=== PATIENT | female | born 1995 | race Caucasian/White ===

== ENCOUNTER 2024-02-21 10:06 | Emergency (ER) | payer OTHER, SELFPAY ==
[2024-02-21 10:57] LABS: % Basophils 0.3 % (0-2); % Eosinophils 0.1 % (0-6); % Immature Granulocytes 0.3 % (0-0.5); % Monocytes 8.3 % (1.7-9.3); Absolute Lymphocytes 1.1 10^3/uL (1.2-3.4); Absolute Monocytes 1.1 10^3/uL (0.1-0.6); Absolute Neutrophils 11.3 10^3/uL (1.4-6.5); Hematocrit 41.3 % (37.0-47.0); Hemoglobin 14.4 g/dL (12.0-16.0); Mean Corp Hgb Conc. 34.9 g/dL (33.0-37.0); Nucleated Red Blood Cells % 0 %; Platelet Count 239 10^3/uL (130-400); Red Blood Cell Count 4.64 10^6/uL (4.20-5.40); Red Cell Dist. Width 11.9 % (11.5-14.5); White Blood Cell Count 13.6 10^3/uL (4.8-10.8)
[2024-02-21 11:06] LABS: HCG, Serum Qualitative Screen Negative
[2024-02-21 11:09] LABS: ALT (SGPT) 13 U/L (0-35); AST (SGOT) 18 U/L (14-36); Albumin 4.4 g/dl (3.5-5.0); Alkaline Phosphatase 59 U/L (38-126); Blood Urea Nitrogen 11 mg/dl (7-17); Calcium 9.4 mg/dl (8.4-10.2); Carbon Dioxide 25 mmol/L (22-30); Chloride 99 mmol/L (98-107); Glucose 140 mg/dl (70-99); Sodium 137 mmol/L (135-145); Total Bilirubin 0.8 mg/dl (0.2-1.3); Total Protein 6.9 g/dl (6.3-8.2); eGFR > 60.00
[2024-02-21 11:14] LABS: Urine Albumin Trace (Neg - Trace); Urine Bilirubin Negative (Negative); Urine Character Clear (Clear); Urine Color Yellow; Urine Glucose Negative (Negative); Urine Ketone 1+ (Negative); Urine Leukocyte Trace (Negative); Urine Nitrite Negative (Negative); Urine Occult Blood 1+ (Negative); Urine Urobilinogen Negative (Neg - 1+)
--- NOTE | 2024-02-21 11:18 | ED.GENMED ---
History of Present Illness
<Korina Humphrey PA-C - Last Filed: 02/21/24 13:50>
General
Chief Complaint: Flank Pain
Source: patient
Exam Limitations: none
Time Seen by Provider: 02/21/24 11:13
Nursing documentation reviewed up to this point in time: agreed with
History of Present Illness
History of Present Illness:
28-year-old female with no past medical history presents emergency department today with concerns of left flank pain, burning with urination, and generalized pelvic pain. Patient states that this all started 2 weeks ago when she started develop
generalized UTI symptoms. She developed urinary burning and urinary frequency. As time went on, she started develop left flank pain which started around 7 days ago and has been progressively getting worse. Patient states that she went to urgent
care yesterday and was started on Macrobid, she had 1 dose of this. Patient states that overnight, she her flank pain got a lot worse and she started develop fevers and chills which resolved with ibuprofen. Patient has been managing her fever with
this. Her last dose was 2 1/2 hours ago.
Past History
<Korina Humphrey PA-C - Last Filed: 02/21/24 13:50>
Social History
Tobacco: Non-smoker
Alcohol: None
Drug: None
Review of Systems
<Korina Humphrey PA-C - Last Filed: 02/21/24 13:50>
Review of Systems
All Other Systems: ROS reviewed and negative except as documented in HPI and ROS
Phy Exam
<Korina Humphrey PA-C - Last Filed: 02/21/24 13:50>
Physical Exam
Physical Exam:
General: Patient is well appearing and in no acute distress; non-toxic
Skin: Warm and dry, no rashes or lesions
Head: Normocephalic, atraumatic
Eyes: Sclera non-icteric. EOMs intact. PERRLA.
Cardiac: Regular rate and rhythm, no murmurs
Peripheral Vascular: No lower extremity swelling or edema
Pulm: Normal respiratory effort
Abdomen: Mild pelvic tenderness to palpation, mild left CVA tenderness
Neuro: CN II-XII intact, no focal neurologic deficits.
Psychiatric: Appropriate mood and affect.
Course
<Korina Humphrey PA-C - Last Filed: 02/21/24 13:50>
Orders/Labs/Results
Orders:
Orders
02/21/24 10:16
Test Result ONCE
02/21/24 10:49
Complete Blood Count/With Diff Urgent
Comprehensive Metabolic Panel Urgent
HCG, Serum Qualitative Screen Urgent
Urinalysis Reflex To Culture Urgent
Date Specimen was Collected: 02/21/24
Time Specimen was Collected: 10:16
Urine Microscopic Reflex Cult Urgent
02/21/24 11:49
0.9% Sodium Chloride 1000 ml [Nss] 1,000 ml IV BOLUS
Ondansetron Injectable [Zofran] 4 mg IV NOW STA
02/21/24 11:53
Vital Signs- Treatment ONCE
Frequency: Once
Acetaminophen [Tylenol] 650 mg PO NOW STA
02/21/24 12:27
CT Abd/pel Without Iv Or Oral Urgent
Reason For Exam: diffuse abdominal pain
Iohexol [Omnipaque] See Protocol PO NOW STA
02/21/24 13:20
Ciprofloxacin HCl [Cipro] 500 mg PO BID
Abnormal Lab Results
02/21/24
10:49
WBC 13.6 H 10^3/uL
(4.8-10.8)
Absolute Neuts (auto) 11.3 H 10^3/uL
(1.4-6.5)
Absolute Lymphs (auto) 1.1 L 10^3/uL
(1.2-3.4)
Absolute Monos (auto) 1.1 H 10^3/uL
(0.1-0.6)
Neutrophils % 83.0 H %
(42.2-75.2)
Lymphocytes % 8.0 L %
(20.5-51.1)
Glucose 140 H mg/dl
(70-99)
Urine Ketones 1+ A
(Negative)
Ur Occult Blood Reflex 1+ A
(Negative)
Leukocyte Esterase Rfl Trace A
(Negative)
Urine Bacteria (Reflex) Few A
(Negative)
02/21/24 10:49
02/21/24 10:49
Vital Signs
Initial and Last Documented VS:
Initial Vital Signs
BP
110/58
02/21/24 11:25
Last Documented Vital Signs
Temp BP Pulse Ox
98.6 F 122/68 100
02/21/24 12:35 02/21/24 12:00 02/21/24 13:15
<Keenan Vickers, - Last Filed: 02/21/24 13:56>
Orders/Labs/Results
Orders:
Orders
02/21/24 10:16
Test Result ONCE
02/21/24 10:49
Complete Blood Count/With Diff Urgent
Comprehensive Metabolic Panel Urgent
HCG, Serum Qualitative Screen Urgent
Urinalysis Reflex To Culture Urgent
Date Specimen was Collected: 02/21/24
Time Specimen was Collected: 10:16
Urine Microscopic Reflex Cult Urgent
02/21/24 11:49
0.9% Sodium Chloride 1000 ml [Nss] 1,000 ml IV BOLUS
Ondansetron Injectable [Zofran] 4 mg IV NOW STA
02/21/24 11:53
Vital Signs- Treatment ONCE
Frequency: Once
Acetaminophen [Tylenol] 650 mg PO NOW STA
02/21/24 12:27
CT Abd/pel Without Iv Or Oral Urgent
Reason For Exam: diffuse abdominal pain
Iohexol [Omnipaque] See Protocol PO NOW STA
02/21/24 13:20
Ciprofloxacin HCl [Cipro] 500 mg PO BID
Abnormal Lab Results
02/21/24
10:49
WBC 13.6 H 10^3/uL
(4.8-10.8)
Absolute Neuts (auto) 11.3 H 10^3/uL
(1.4-6.5)
Absolute Lymphs (auto) 1.1 L 10^3/uL
(1.2-3.4)
Absolute Monos (auto) 1.1 H 10^3/uL
(0.1-0.6)
Neutrophils % 83.0 H %
(42.2-75.2)
Lymphocytes % 8.0 L %
(20.5-51.1)
Glucose 140 H mg/dl
(70-99)
Urine Ketones 1+ A
(Negative)
Ur Occult Blood Reflex 1+ A
(Negative)
Leukocyte Esterase Rfl Trace A
(Negative)
Urine Bacteria (Reflex) Few A
(Negative)
02/21/24 10:49
02/21/24 10:49
Vital Signs
Initial and Last Documented VS:
Initial Vital Signs
BP
110/58
02/21/24 11:25
Last Documented Vital Signs
Temp BP Pulse Ox
98.6 F 122/68 100
02/21/24 12:35 02/21/24 12:00 02/21/24 13:15
Vinhlt;Korina Humphrey PA-C - Last Filed: 02/21/24 13:50>
MDM/Problems Addressed
Differential Diagnosis Includes:
Differentials include acute cystitis, pyelonephritis, nephrolithiasis
MDM/Problems Addressed:
28-year-old female presents emergency department with 2 weeks of generalized UTI symptoms as well as flank pain over the past 7 days. Patient also reports fevers and chills last night. Patient saw urgent care yesterday and she took 1 dose of
Macrobid. Patient states that overnight her fevers and chills got worse and her flank pain worsened. Patient's UTI symptoms she describes are burning with urination and urinary frequency as well as pelvic pain. Here in emergency department, her
lab work demonstrates a leukocytosis but no bands, CMP unremarkable, she is not , urinalysis concerning for infection in conjunction with her symptoms. Considering CT revealed no kidney stone, patient stable for discharge to be treated as
pyelonephritis. Patient will be given dose of Cipro here and will be sent home with a course of ciprofloxacin. I did advise patient to come back should her symptoms not improve. Patient stable for discharge.
Chronic conditions affecting care:
n/a
Acute Exacerbation and/or Progression of Chronic Illness:
n/a
<Korina Humphrey PA-C - Last Filed: 02/21/24 13:50>
*Pulse Oximetry
Patient hypoxic: no
*Critical Care Note
Total Time (30-74mins, 75-104mins- exclusive of procedures): Not Applicable
Data Reviewed
Review of Other/Old Records Reveals: Records (Reviewed ER physician documentation from 06/03/2022, patient was seen for closed head injury and was seen here for syncopal episodes in the past) and Discharge Summary (no discharge summary to review)
Source: patient and records
Prescriptions/Medications Considered But Not Given:
n/a
<Korina Humphrey PA-C - Last Filed: 02/21/24 13:50>
Patient Management
Escalation/DeEscalation of care consider admission/obs:
Admit not indicated, patient stable for discharge
ED Attending Note
<PARISH Elkins Last Filed: 02/21/24 13:50>
-
Portions of this chart may have been created with voice recognition software.� Occasional wrong word or��sound alike� substitutions may have occurred due to the inherent limitations of voice recognition software.
<Keenan Davis DO Rancho - Last Filed: 02/21/24 13:56>
ED Attending Note
Patient seen and examined by attending physician: Yes
I performed the substantive portion of visit, reviewed & personally made and approve the management plan that is documented in note by myself or ESAU.: Yes
I performed a history and physical exam of patient and discussed management with resident, I reviewed resident's note and agree with documented findings and plan of care.: Yes
ED Attending Note:
I evaluated the patient at bedside. The patient is very well-appearing. Her heart rate is 80 on my examination. She is afebrile. Although she has leukocytosis, she is very well-appearing and does not appear septic. Although she took a dose of
Macrobid, will place on quinolone antibiotic.
Discharge Plan
Departure
Patient Disposition: Home (Routine Discharge)
Date of Disposition: 02/21/24
Time of Disposition: 13:39
Patient with high blood pressure during this ER visit?: No
Condition: Good
Discharge Problem:
Pyelonephritis
Instructions: Urinary Tract Infection, Adult ED, BLOOD PRESSURE
Prescriptions:
New
ciprofloxacin HCl [Cipro] 500 mg tablet
500 mg PO BID 7 Days Qty: 15 0RF
Referrals:
NONE,* [Family Provider] -
Stand Alone Forms: Return to Work
Activity Restrictions/Additional Instructions:
Before bed tonight, please take one dose of your antibiotic. Starting tomorrow, you can take one tablet twice daily for 7 days.
Please return to emergency department should your symptoms not start to get better, should you have intractable fevers and chills, she has intractable vomiting, chest pain, shortness of breath, or any other signs or symptoms concerning to you.
Interventions
Interventions:
*Risk Screen - Suicide Last Done: 02/21/24 10:10
*General Assessment Last Done: 02/21/24 10:10
*Neglect/Abuse Screening Last Done: 02/21/24 10:10
ED- Fall Risk Assessment Last Done: 02/21/24 11:22
*ED COVID-19 Vaccine History Last Done: 02/21/24 11:22
*Nursing Disposition Last Done: 02/21/24 13:48
LQ-Qwbvpc-Hcenyvdvdu Assessment Last Done: 02/21/24 11:22
ED-Female Genitourinary Assessment Last Done: 02/21/24 11:22
Discharge Date and Time
Discharge Date/Time: 02/21/24 13:50
Print Language: [place]
[2024-02-21 11:25] VITALS: BP 110/58
[2024-02-21 11:35] LABS: Urine Squamous Cell >30 /LPF (Few)
[2024-02-21 11:36] LABS: Urine Bacteria Few (Negative)
[2024-02-21 11:37] LABS: Urine Red Blood Cell 0-2 /HPF (0-2)
[2024-02-21 12:00] VITALS: BP 122/68
[2024-02-21] MEDS: NSS 1000 IV (12:04)
[2024-02-21] MEDS: TYLENOL 650 MG PO (12:05)
[2024-02-21] MEDS: CIPRO 500 MG PO (13:41)
== END 2024-02-21 13:50 | disposition home or self-care (01) ==
LOC: EMR 10:06
PROVIDERS: Emergency Medicine; EMERGENCY PHYSICIAN Emergency Medicine
DX: N10 Acute pyelonephritis (principal); Z88.0 Allergy status to penicillin
CPT/HCPCS: 99284; 96360; 74176; 80053; 81003; 81015; 84703; 85025